=== PATIENT | female | born 1960 | race Caucasian/White ===

== ENCOUNTER 2022-12-14 12:22 | Day surgery (SDC) | payer MEDICARE ==
[~2022-12-14] VITALS: Ht 177.8 cm; Wt 70.4 kg
[2022-12-14] MEDS ORDERED: ALBU90OI (12:44)
[2022-12-14] MEDS ORDERED: ARIP30 (12:45)
[2022-12-14] MEDS ORDERED: Bupropion HCl75 MG (12:45)
[2022-12-14] MEDS ORDERED: ERGO400 (12:46)
[2022-12-14] MEDS ORDERED: BREO ELLIPTA 21 EAC1 (12:46)
[2022-12-14] MEDS ORDERED: DOXA1 (12:46)
[2022-12-14] MEDS ORDERED: ONDA4ODT (12:47)
[2022-12-14] MEDS ORDERED: LOSA50 (12:47)
[2022-12-14] MEDS ORDERED: FURO20 (12:47)
[2022-12-14] MEDS ORDERED: METO50ER (12:47)
[2022-12-14] MEDS ORDERED: OMEP20ER (12:47)
[2022-12-14] MEDS ORDERED: MIRALAX17 GM (12:49)
[2022-12-14] MEDS ORDERED: POTA10T (12:49)
[2022-12-14] MEDS ORDERED: PRAV20 (12:49)
[2022-12-14] MEDS ORDERED: PREG50 (12:50)
[2022-12-14] MEDS ORDERED: TRAZ50 (12:50)
[2022-12-14] MEDS ORDERED: PRAZ2 (12:50)
[2022-12-14] MEDS ORDERED: turmeric (12:51)
== END 2022-12-14 14:42 | disposition home or self-care (01) ==
LOC: ORSCSDS 12:22
PROVIDERS: Student in an Organized Health Care Education/Training Program
PROC: 0DB58ZX Excision of Esophagus, Via Natural or Artificial Opening Endoscopic, Diagnostic (ICD-10-PCS; principal; 2022-12-14 13:45)
PROC: 0DBE8ZX Excision of Large Intestine, Via Natural or Artificial Opening Endoscopic, Diagnostic (ICD-10-PCS; principal; 2022-12-14 13:45)
PROC: 0DB98ZX Excision of Duodenum, Via Natural or Artificial Opening Endoscopic, Diagnostic (ICD-10-PCS; principal; 2022-12-14 13:45)
PROC: 0DBK8ZX Excision of Ascending Colon, Via Natural or Artificial Opening Endoscopic, Diagnostic (ICD-10-PCS; principal; 2022-12-14 13:45)
PROC: 0DB78ZX Excision of Stomach, Pylorus, Via Natural or Artificial Opening Endoscopic, Diagnostic (ICD-10-PCS; principal; 2022-12-14 13:45)
PROC: 0DBM8ZX Excision of Descending Colon, Via Natural or Artificial Opening Endoscopic, Diagnostic (ICD-10-PCS; principal; 2022-12-14 13:45)
DX: R19.7 Diarrhea, unspecified (principal); R13.10 Dysphagia, unspecified; K62.5 Hemorrhage of anus and rectum; K21.9 Gastro-esophageal reflux disease without esophagitis; D12.2 Benign neoplasm of ascending colon; K63.5 Polyp of colon; K29.70 Gastritis, unspecified, without bleeding; K62.89 Other specified diseases of anus and rectum; G35 Multiple sclerosis; I10 Essential (primary) hypertension; Z87.891 Personal history of nicotine dependence; Z79.899 Other long term (current) drug therapy
CPT/HCPCS: 88305; 88342; J2704; J7120